=== PATIENT | male | born 2000 | race Caucasian/White ===

== ENCOUNTER 2020-04-16 09:03 | Emergency (ER) | payer OTHER, SELFPAY ==
[2020-04-16 09:14] VITALS: BP 127/83; PULSE 95; RESP 17; TEMP 36.2; O2SAT 100
--- NOTE | 2020-04-16 10:31 | ED.WOUNDLAC ---
HPI - Wound/Laceration General Chief Complaint: Wound/Laceration <Jodi Virk PA-C - Last Filed: 04/16/20 11:34> Stated Complaint: laceration/work injury <Jodi Virk PA-C - Last Filed: 04/16/20 11:34> Time Seen by Provider: 04/16/20 10:03 <Jodi Virk PA-C - Last Filed: 04/16/20 11:34> Source: patient <Jodi Virk PA-C - Last Filed: 04/16/20 11:34> Mode of arrival: ambulatory <Jodi Virk PA-C - Last Filed: 04/16/20 11:34> Limitations: no limitations <Jodi Virk PA-C - Last Filed: 04/16/20 11:34> History of Present Illness HPI narrative: This is a 19 year old male that presents the emergency department for laceration to left thigh sustained just prior to arrival. Reports he was at work and was climbing down off of a tree. Reports he accidentally cut himself on a metal pole that was sticking out of the tree. Reports he is up-to-date on tetanus. Denies decreased range of motion or numbness. <Jodi Virk PA-C - Last Filed: 04/16/20 11:34> Related Data Allergies/Adverse Reactions: Allergies Allergy/AdvReac Type Severity Reaction Status Date / Time No Known Allergies Allergy Mild Verified 04/16/20 10:56 <Jodi Virk PA-C - Last Filed: 04/16/20 11:34> Review of Systems Review of Systems: Narrative: CONSTITUTIONAL: Denies fever SKIN: Reports laceration <Jodi Virk PA-C - Last Filed: 04/16/20 11:34> All systems reviewed & are unremarkable except as noted in HPI and below <Jodi Virk PA-C - Last Filed: 04/16/20 11:34> [facility] Past Medical History Medical History: Medical History (Updated 04/16/20 @ 11:33 by Jodi Virk PA-C) No active medical problems <Jodi Virk PA-C - Last Filed: 04/16/20 11:34> Social History Social History: Social History (Updated 04/16/20 @ 10:33 by Jodi Virk PA-C) Substance use: never <Jodi Virk PA-C - Last Filed: 04/16/20 11:34> Exam Narrative: Exam Narrative: GENERAL: Well-appearing, well-nourished, and in no acute distress. HEAD: Normocephalic, atraumatic. EYES: EOMI. EXTREMITIES: Normal range of motion. No edema. Left upper inner thigh with 3cm linear laceration into subcutaneous tissue SKIN: Warm, dry, no rash. NEURO: No focal deficits. Alert and oriented x3. PSYCH: Normal mood and affect <Jodi Virk PA-C - Last Filed: 04/16/20 11:34> Course Vital Signs Vital signs: Vital Signs Temperature 36.2 C L 04/16/20 09:14 Pulse Rate 95 04/16/20 09:14 Respiratory Rate 17 04/16/20 09:14 Blood Pressure 127/83 04/16/20 09:14 Pulse Oximetry 100 04/16/20 09:14 Temperature 36.8 C 04/16/20 11:05 Pulse Rate 82 04/16/20 11:39 Respiratory Rate 18 04/16/20 11:39 Blood Pressure 138/76 04/16/20 11:39 Pulse Oximetry 99 04/16/20 11:39 <Jodi Virk PA-C - Last Filed: 04/16/20 11:34> Vital Signs Temperature 36.2 C L 04/16/20 09:14 Pulse Rate 95 04/16/20 09:14 Respiratory Rate 17 04/16/20 09:14 Blood Pressure 127/83 04/16/20 09:14 Pulse Oximetry 100 04/16/20 09:14 Temperature 36.8 C 04/16/20 11:05 Pulse Rate 82 04/16/20 11:39 Respiratory Rate 18 04/16/20 11:39 Blood Pressure 138/76 04/16/20 11:39 Pulse Oximetry 99 04/16/20 11:39 <Randy Espinal MD - Last Filed: 04/16/20 18:18> Procedures Laceration Laceration 1: Date: 04/16/20 <MARIANO Florian Last Filed: 04/16/20 11:34> Time: 11:31 <MARIANO Florian Last Filed: 04/16/20 11:34> Site: lower extremity <MARIANO Florian Last Filed: 04/16/20 11:34> Side (If applicable): left <MARIANO Florian Last Filed: 04/16/20 11:34> Size (cm): 3 <MARIANO Florian Last Filed: 04/16/20 11:34> Description: linear <MARIANO Florian Last Filed: 04/16/20 11:34> Depth: simple, single laye
[2020-04-16 11:05] VITALS: BP 131/75; PULSE 89; RESP 18; TEMP 36.8; O2SAT 100
[2020-04-16 11:39] VITALS: BP 138/76; PULSE 82; RESP 18; O2SAT 99
== END 2020-04-16 11:45 | disposition home or self-care (01) ==
PROVIDERS: Emergency Provider Emergency Medicine
DX: S71.112A Laceration without foreign body, left thigh, initial encounter (principal); W26.8XXA Contact with other sharp object(s), not elsewhere classified, initial encounter
CPT/HCPCS: 12002; 99283